=== PATIENT | male | born 1995 | race Two or more races ===

== ENCOUNTER 2019-07-31 15:39 | Emergency (ER) | payer SELFPAY ==
[~2019-07-31] VITALS: Ht 193 cm; Wt 131.5 kg
[2019-07-31 15:44] VITALS: BP 118/61
[2019-07-31] MEDS ORDERED: KETOROLAC TROMETH 15 mg/ml 1ML VL IV ONE (16:15)
[2019-07-31] MEDS ORDERED: KETOROLAC TROMETH 30 MG/ML 1ML VIAL ONE (16:21)
== END 2019-07-31 17:29 | disposition home or self-care (01) ==
LOC: ER 15:39 → EDBD 15:39 → ER 17:29
DX: S46.912A Strain of unspecified muscle, fascia and tendon at shoulder and upper arm level, left arm, initial encounter (principal); S09.8XXA Other specified injuries of head, initial encounter; S16.1XXA Strain of muscle, fascia and tendon at neck level, initial encounter; V89.2XXA Person injured in unspecified motor-vehicle accident, traffic, initial encounter; Y93.89 Activity, other specified; Y92.89 Other specified places as the place of occurrence of the external cause; Y99.8 Other external cause status
CPT/HCPCS: 70450; 72125; 73030; 96374; 99285; J1885